=== PATIENT | male | born 1980 | race Caucasian/White ===

== ENCOUNTER 2021-12-17 16:14 | Emergency (ER) | payer SELFPAY ==
[~2021-12-17] VITALS: Ht 190.5 cm; Wt 130.0 kg
[2021-12-17] MEDS ORDERED: ONDANSETRON PF 4 MG/2 ML VIAL. IVP ONE (16:45)
--- NOTE | 2021-12-17 17:44 | RAD ---
Exam: Scrotal ultrasound. CLINICAL HISTORY: Testicular pain. COMPARISON: None available. TECHNIQUE: Ultrasound images of the scrotum was performed with egan-scale, color and spectral Dopple r FINDINGS: The right testis measures 4.6 x 3.4 x 2.7 cm. The left testis 4.3 x 3.2 x 2.47 cm. Testicles are homogeneous. No testicular mass. Testicular vascularity is symmetric and within normal limits. The epididymis is normal in appearance bilaterally. There is no hydrocele or varicocele. IMPRESSION: Normal testicular ultrasound. Electronically signed by: Manju Velásquez MD (12/17/2021 5:42 PM) [id number]
[2021-12-17 17:49] LABS: BASO # 0.1 x10^3/uL (0.0-0.2); BASO % 1 % (0-3); EOS # 0.1 x10^3/uL (0.0-0.7); EOS % 1 % (0-3); HEMATOCRIT 49.1 % (39.0-53.0); HEMOGLOBIN 16.8 g/dL (13.0-17.5); LYMPH # 2.6 x10^3/uL (1.0-4.8); LYMPH % 27 % (24-48); MEAN CORPUSCULAR HEMOGLOBIN 31 pg (25-35); MEAN CORPUSCULAR HGB CONC 34 g/dL (31-37); MEAN CORPUSCULAR VOLUME 91 fL (79-100); MONO # 0.7 x10^3/uL (0.0-1.1); MONO % 8 % (0-9); NEUT # 6.1 x10^3uL (1.8-7.7); NEUT % 63 % (31-73); PLATELET COUNT 107 x10^3/uL (140-400); RED BLOOD COUNT 5.37 x10^6/uL (4.30-5.70); RED CELL DISTRIBUTION WIDTH 13.4 % (11.5-14.5); WHITE BLOOD COUNT 9.6 x10^3/uL (4.0-11.0)
[2021-12-17 17:53] LABS: CALCIUM 7.6 mg/dL (8.5-10.1); CREATININE 1.1 mg/dL (0.7-1.3); GFR 73.1; POTASSIUM 4.3 mmol/L (3.5-5.1)
--- NOTE | 2021-12-17 17:56 | PHYS DOC ---
Past History Past Surgical History: Other Additional Past Surgical Histo: cyst removed from neck; right elbow (SOLA PINZON APRN) Additional Smoking Information: vap Alcohol Use: None (SOLA PINZON APRN) General Adult EDM: Chief Complaint: TESTICULAR PAIN OR INJURY HPI: HPI: Patient is a 41-year-old male who presents today with testicular pain. Patient states he woke up and started experiencing testicular pain he did go to work and work noticed he was having some discomfort and they recommended he go to his primary care physician for further management of this pain. Patient did go his primary care physician and they sent him here to the emergency department for evaluation of his testicular pain. (SOLA PINZON APRN) Review of Systems: Review of Systems: Constitutional: Denies fever or chills Eyes: Denies change in visual acuity HENT: Denies nasal congestion or sore throat Respiratory: Denies cough or shortness of breath Cardiovascular: Denies chest pain or edema GI: Denies abdominal pain, nausea, vomiting, bloody stools or diarrhea : Testicular pain Musculoskeletal: Denies back pain or joint pain Integument: Denies rash Neurologic: Denies headache, focal weakness or sensory changes Endocrine: Denies polyuria or polydipsia Lymphatic: Denies swollen glands Psychiatric: Denies depression or anxiety (SOLA PINZON APRN) Current Medications: Current Meds: Current Medications Medications (Trade) Dose Ordered Sig/Fanny Start Time Stop Time Status Last Admin Dose Admin Fentanyl Citrate (Fentanyl 2ml Vial) 75 mcg 1X ONCE 12/17/21 16:45 12/17/21 16:46 DC 12/17/21 16:51 75 MCG Ondansetron HCl (Zofran) 4 mg 1X ONCE 12/17/21 16:45 12/17/21 16:46 DC 12/17/21 16:46 4 MG (SOLA PINZON APRN) Allergies: Allergies: Allergies Coded Allergies Type Severity Reaction Last Updated Verified No Known Drug Allergies 12/17/21 No (SOLA PINZON APRN) Physical Exam: PE: Constitutional: Well developed, well nourished, no acute distress, non-toxic appearance. [] HENT: Normocephalic, atraumatic, bilateral external ears normal, oropharynx moist, no oral exudates, nose normal. [] Eyes: PERRLA, EOMI, conjunctiva normal, no discharge. [] Neck: Normal range of motion, no tenderness, supple, no stridor. [] Cardiovascular:Heart rate regular rhythm, no murmur [] Lungs & Thorax: Bilateral breath sounds clear to auscultation [] Abdomen: Bowel sounds normal, soft, no tenderness, no masses, no pulsatile masses : Inspection of testicles shows normal testicles, pain with the right testicle greater than the left testicle, no palpable mass noted, no penile discharge noted, [place] at bedside. Skin: Warm, dry, no erythema, no rash. [] Back: No tenderness, no CVA tenderness. [] Extremities: No tenderness, no cyanosis, no clubbing, ROM intact, no edema. [] Neurologic: Alert and oriented X 3, normal motor function, normal sensory function, no focal deficits noted. [] Psychologic: Affect normal, judgement normal, mood normal. [] (SOLA PINZON APRN) Current Patient Data: Labs: Laboratory Tests Test 12/17/21 16:50 White Blood Count 9.6 x10^3/uL (4.0-11.0) Red Blood Count 5.37 x10^6/uL (4.30-5.70) Hemoglobin 16.8 g/dL (13.0-17.5) Hematocrit 49.1 % (39.0-53.0) Mean Corpuscular Volume 91 fL (79-100) Mean Corpuscular Hemoglobin 31 pg (25-35) Mean Corpuscular Hemoglobin Concent 34 g/dL (31-37) Red Cell Distribution Width 13.4 % (11.5-14.5) Platelet Count 107 x10^3/uL (140-400) L Neutrophils (%) (Auto) 63 % (31-73) Lymphocytes (%) (Auto) 27 % (24-48) Monocytes (%) (Auto) 8 % (0-9) Eosinophils (%) (Auto) 1 % (0-3) Basophils (%) (Auto) 1 % (0-3) Neutrophils # (Auto) 6.1 x10^3uL (1.8-7.7) Lymphocytes # (Auto) 2.6 x10^3/uL (1.0-4.8) Monocytes # (Auto) 0.7 x10^3/uL (0.0-1.1) Eosinophils # (Auto) 0.1 x10^3/uL (0.0-0.7) Basophils # (Auto) 0.1 x10^3/uL (0.0-0.2) Vital Signs: Vital Signs Date Time Temp Pulse Resp B/P (MAP) Pulse Ox O2 Delivery O2 Flow Rate FiO2 12/17/21 16:51 18 97 Room Air 12/17/21 16:25 97.6 103 167/119 (135) (SOLA PINZON APRN) EKG: EKG: [] (SOLA PINZON APRN) Radiology/Procedures: Radiology/Procedures: REASON: TESTICULAR PAIN PROCEDURE: TESTICULAR/SCROTUM Exam: Scrotal ultrasound. CLINICAL HISTORY: Testicular pain. COMPARISON: None available. TECHNIQUE: Ultrasound images of the scrotum was performed with egan-scale, color and spectral Doppler FINDINGS: The right testis measures 4.6 x 3.4 x 2.7 cm. The left testis 4.3 x 3.2 x 2.47 cm. Testicles are homogeneous. No testicular mass. Testicular vascularity is symmetric and within normal limits. The epididymis is normal in appearance bilaterally. There is no hydrocele or varicocele. IMPRESSION: Normal testicular ultrasound. Electronically signed by: Manju Velásquez MD (12/17/2021 5:42 PM) [id number][] (SOLA PINZON APRN) Heart Score: C/O Chest Pain: N/A Risk Factors: Risk Factors: DM, Current or recent (<one month) smoker, HTN, HLP, family history of CAD, obesity. Risk Scores: Score 0 - 3: 2.5% MACE over next 6 weeks - Discharge Home Score 4 - 6: 20.3% MACE over next 6 weeks - Admit for Clinical Observation Score 7 - 10: 72.7% MACE over next 6 weeks - Early Invasive Strategies (SOLA PINZON APRN) Course & Med Decision Making: Course & Med Decision Making Pertinent Labs and Imaging studies reviewed. (See chart for details) 1929 reviewed radiological and laboratory findings with patient. Did not find anything acute at this time no testicular torsion no epididymitis no hydrocele at this time. Patient was informed to follow-up with his primary care physician for further management or follow-up with urology. Patient verbalized understanding of this and is agreeable to the plan of care. (SOLA PINZON APRN) Course & Med Decision Making Did not see or evaluate patient. Did not discuss patient with COMPUTER LAB AIDE. Agree with COMPUTER LAB AIDE's work-up and disposition per note (GERRY RAJPUT MD) Dragon Disclaimer: Dragon Disclaimer: This electronic medical record was generated, in whole or in part, using a voice recognition dictation system. (SOLA PINZON APRN) Departure Departure: Impression: Primary Impression: Testicular pain, right Disposition: HOME / SELF CARE / HOMELESS Condition: STABLE Referrals: THIAGO POST (PCP) TAMIKO LANGLEY MD Patient Instructions: Testicular Problems and Self-Exam Additional Instructions: Follow-up with your primary care physician or Dr. Langley with urology for further management of your testicular pain Return to the emergency department if you develop fever, increased swelling of your testicles, testicles are abnormal colored or any other concerns. [place] take 1 tablet every 6 hours as needed for severe pain. Use with caution may cause drowsiness do not operate heavy machinery of taking this Motrin take 600 mg every 6 hours as needed for pain. 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
[2021-12-17 18:46] LABS: BACTERIA,URINE 0 /HPF (0-FEW); BILIRUBIN,URINE NEG (NEG); CLARITY,URINE CLEAR; COLOR,URINE YELLOW; GLUCOSE,URINE NEG (NEG); NITRITE,URINE NEG (NEG); RBC,URINE 0 /HPF (0-2); SQUAMOUS EPITHELIAL CELL,UR FEW /LPF; UROBILINOGEN,URINE 0.2 mg/dL (0.2 mg/dL); WBC,URINE OCC /HPF (0-4)
[2021-12-17] MEDS ORDERED: IBUP600T16 PO (19:49)
[2021-12-17] MEDS ORDERED: HYDR-2155 PO ×2 (19:49→19:55)
[2021-12-17 20:20] VITALS: BP 161/101
== END 2021-12-17 20:20 | disposition home or self-care (01) ==
LOC: ER 16:14
DX: N50.811 Right testicular pain (principal); F17.200 Nicotine dependence, unspecified, uncomplicated
CPT/HCPCS: 36415; 76870; 80048; 81001; 85025; 87491; 87591; 96374; 96375; 99284; J2405; J3010

== ENCOUNTER 2022-02-26 01:44 | Emergency (ER) | payer OTHER ==
[~2022-02-26] VITALS: Ht 190.5 cm; Wt 130.8 kg
[~2022-02-26 01:44] MED LIST: HYDR-2155 PO; IBUP600T16 PO
[2022-02-26 01:59] VITALS: BP 161/100
--- NOTE | 2022-02-26 02:12 | PHYS DOC ---
Past History Past Surgical History: Other Additional Past Surgical Histo: cyst removed from neck; right elbow Additional Smoking Information: vape Alcohol Use: None Adult General Chief Complaint Chief Complaint: WRIST PAIN HPI HPI Patient is a 41-year-old man who presents with wrist pain, 6 out of 10, dull and achy in nature. Denies any recent travels, traumas, illnesses, fevers, even falls. 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 States he took some naproxen earlier. Review of Systems Review of Systems Review of systems otherwise unremarkable except noted in HPI Allergies Allergies Allergies Coded Allergies Type Severity Reaction Last Updated Verified No Known Drug Allergies 02/26/22 No Physical Exam Physical Exam Constitutional: Well developed, well nourished, no acute distress, non-toxic appearance. [] HENT: Normocephalic, atraumatic, bilateral external ears normal, oropharynx moist, no oral exudates, nose normal. [] Skin: Warm, dry, no erythema, no rash. [] Extremities: Neurovascular exam intact, capillary refill normal, pain elicited on palpation of the right anterior wrist with no obvious bruising, deformities or swelling Neurologic: Alert and oriented X 3, no focal deficits noted. [] Psychologic: Affect normal, judgement normal, mood normal. [] Current Patient Data Vital Signs Vital Signs Date Time Temp Pulse Resp B/P (MAP) Pulse Ox O2 Delivery O2 Flow Rate FiO2 02/26/22 01:59 98.0 99 20 161/100 (120) 99 EKG EKG [] Radiology/Procedures Radiology/Procedures [] Heart Score C/O Chest Pain: No Risk Factors: Risk Factors: DM, Current or recent (<one month) smoker, HTN, HLP, family history of CAD, obesity. Risk Scores: Risk Factors: DM, Current or recent (<one month) smoker, HTN, HLP, family history of CAD, obesity. Course & Med Decision Making Course & Med Decision Making Patient is 41-year-old male presents with wrist pain Vital signs not concerning. Physical exam noted above. Given Tylenol, and ice pack. Patient took naproxen just before coming. Imaging with no acute osseous abnormalities. Discussed differential with patient including soft tissue injury and/or an etiology of nerve compression such as carpal tunnel Advised to follow-up as soon as possible with primary care physician to discuss ED visit and evaluation and diagnosis moving forward. Discussed possible need for MRI or neurologic consultation. Gave return precautions to the ED. Patient grateful, verbalized understanding and agreed with plan of discharge. [] Dragon Disclaimer Dragon Disclaimer This electronic medical record was generated, in whole or in part, using a voice recognition dictation system. Departure Departure: Impression: Primary Impression: Wrist pain Disposition: HOME / SELF CARE / HOMELESS Condition: STABLE Referrals: PCP,NO (PCP) CHERIE ANN MD Patient Instructions: RICE - Routine Care for Injuries Additional Instructions: Thank you for coming into the emergency department tonight and allowing us to take care of you. Please read the attached information carefully to go over things we discussed. Please begin a regimen of 1000 mg of Tylenol 3 times a day, 800 mg of ibuprofen 3 times a day, and 50 mg of Benadryl 4 times a day. Please use ice and keep your arm elevated. Please use your prescription pain medicine every 6 hours as needed. Please follow-up as soon as you can with your primary care physician to update on ED visit and set up a follow-up for reevaluation and discussion of need for MRI to evaluate the soft tissues of your arm as we discussed. Please come back with new or concerning symptoms as discussed. GERRY RAJPUT MD Feb 26, 2022 02:12
--- NOTE | 2022-02-26 02:43 | RAD ---
EXAMINATION: XR RT WRIST 3VIEWS CLINICAL HISTORY: Right wrist pain with stiffness and swelling. TECHNIQUE: XR RT WRIST 3VIEWS COMPARISON: None FINDINGS/ IMPRESSION: Joint spaces and alignment maintained. No acute fracture. Mild soft tissue swelling along the dorsal wrist. Electronically signed by: Andrea Mccarthy DO (02/26/2022 2:41 AM) PR[facility]EEP
[2022-02-26] MEDS ORDERED: START PACK - traMADol 1 STARTPACK TABLET PO ONE (03:00)
== END 2022-02-26 03:01 | disposition home or self-care (01) ==
LOC: ER 01:44
DX: M25.531 Pain in right wrist (principal); F17.200 Nicotine dependence, unspecified, uncomplicated
CPT/HCPCS: 29125; 73110; 99283